=== PATIENT | female | born 1955 | race Caucasian/White ===

== ENCOUNTER → 2020-08-24 09:44 | Outpatient (CLI) | payer BC, SELFPAY ==
--- NOTE | ~2020-08-24 | US_ITS ---
EXAMINATION: US thyroid EXAM DATE: 08/24/2020 09:59 INDICATION: Disorder of thyroid, unspecified . TECHNIQUE: Multiple grayscale and Doppler images of the thyroid were obtained (by a technologist who performed the scan) and subsequently reviewed. Individual nodules and recommendations may be reporte d in accordance with TI-RADS system as designated by the 2017 ACR White Paper TI-RADS committee. The re is no prior study for comparison. FINDINGS: The right thyroid lobe measures 5.2 x 1.6 x 1.2 cm, left measuring 40.4 x 1.2 x 1.5 cm. There is mild ly heterogeneous thyroid echogenicity overall. There is a nodule in the inferior pole right thyroid lobe measuring 1.3 x 0.6 x 1.0 cm, solid (2 poin ts), hypoechoic (2 points), wider than tall, smooth margin, without echogenic foci, category TR4 for this nodule. IMPRESSION: Small right thyroid lobe nodule; consider one-year follow-up ultrasound. Reviewed, dictated and finalized at location A. NT RELATIONSHIP MANAGER IMPRESSION: Small right thyroid lobe nodule; consider one-year follow-up ultras ound.
== END ==
PROVIDERS: Visit Provider Nurse Practitioner
DX: E04.1 Nontoxic single thyroid nodule (principal)
CPT/HCPCS: 76536

== ENCOUNTER 2020-10-23 15:23 | Outpatient (CLI) | payer BC, SELFPAY ==
--- NOTE | ~2020-10-23 | MM_ITS ---
EXAMINATION: MM screening [facility] BI w pilar HISTORY: Screening mammogram TECHNIQUE: Craniocaudal and mediolateral oblique 3-D tomosynthesis images were obtained and synthetic 2-D images were generated. CAD analysis was submitted and interpreted. COMPARISON: 10/11/2019, 10/08/2018, 10/07/2017 BREAST PARENCHYMAL COMPOSITION: There are scattered areas of fibroglandular density. FINDINGS: There is no evidence of suspicious mass, calcification, or architectural distortion to sugg est malignancy in either breast. There has been no suspicious interval change. IMPRESSION: 1. No mammographic evidence of malignancy. 2. Recommend routine screening mammography in one year. BI-RADS Category 1: Negative Reviewed, dictated and finalized at location A. ENRICHMENT ASSISTANT
== END 2020-10-23 15:24 | disposition home or self-care (01) ==
PROVIDERS: PCP Nurse Practitioner; Visit Provider Nurse Practitioner
DX: Z12.31 Encounter for screening mammogram for malignant neoplasm of breast (principal)
CPT/HCPCS: 77063; 77067

== ENCOUNTER → 2021-08-25 09:41 | Outpatient (CLI) | payer BC, SELFPAY ==
--- NOTE | ~2021-08-25 | US_ITS ---
EXAMINATION: US thyroid DATE: 08/25/2021 10:02 INDICATION: Nontoxic single thyroid nodule. TECHNIQUE: Multiple ultrasound images of the thyroid were obtained. COMPARISON: Ultrasound 08/24/2020 FINDINGS: The right thyroid lobe measures 4.6 x 1.7 x 1.3 cm. The left thyroid lobe measures 4.5 x 1.6 x 1.5 c m. In the right thyroid lobe, there is a 1.3 cm predominantly solid, hypoechoic, [id number] nod ule with smooth margin without echogenic foci (TI-RADS TR4). IMPRESSION: 1. Stable thyroid nodule. Thyroid ultrasound is recommended in one year. Reviewed, dictated and finalized at location A. ORK OPERATIONS CENTER TECHNICIAN
== END ==
PROVIDERS: Visit Provider Nurse Practitioner
DX: E04.1 Nontoxic single thyroid nodule (principal)
CPT/HCPCS: 76536

== ENCOUNTER 2021-11-08 07:33 | Outpatient (CLI) | payer BC, SELFPAY ==
--- NOTE | ~2021-11-08 | MM_ITS ---
EXAMINATION: MM screening [facility] BI w pilar HISTORY: Screening TECHNIQUE: Craniocaudal and mediolateral oblique 3-D tomosynthesis images were obtained and synthetic 2-D images were generated. CAD analysis was submitted and interpreted. COMPARISON: Comparison to multiple prior studies sequentially, with oldest reviewed study dated 08/23. BREAST PARENCHYMAL COMPOSITION: There are scattered areas of fibroglandular density. FINDINGS: Benign-appearing bilateral breast masses are unchanged. There is no evidence of suspicious mass, calcification, or architectural distortion to suggest malignancy in either breast. There has be en no suspicious interval change. IMPRESSION: 1. No mammographic evidence of malignancy. 2. Recommend routine screening mammography in one year. BI-RADS Category 2: Benign finding(s). Reviewed, dictated and finalized at location A. ION ATTENDANT
== END 2021-11-08 07:34 | disposition home or self-care (01) ==
LOC: ANHIMG 07:37
PROVIDERS: Visit Provider Nurse Practitioner
DX: Z12.31 Encounter for screening mammogram for malignant neoplasm of breast (principal)
CPT/HCPCS: 77063; 77067

== ENCOUNTER → 2021-11-26 17:51 | Outpatient (CLI) | payer BC, SELFPAY ==
--- NOTE | ~2021-11-26 | DEXA_ITS ---
Bone Density Report Name: MARIBETH CRUZ Age: 66 Sex: Female Ethnicity: White Date of : 1955 Indication: osteopenia; parental hip fracture; prior fracture; postmenopausal Referring Provider: ANGEL, JACKIE Study: Bone densitometry was performed. Exam Date: November 26, 2021 Accession number: [id number] Bone Density: Region BMD T-score Z-score Classification AP Spine (L1-L4) 0.863 -1.7 0.1 Osteopenia Femoral Neck (Left) 0.587 -2.4 -0.9 Osteopenia Total Hip (Left) 0.782 -1.3 -0.1 Osteopenia Femoral Neck (Right) 0.618 -2.1 -0.6 Osteopenia Total Hip (Right) 0.820 -1.0 0.2 Normal Total Hip Mean 0.801 -1.2 0.1 Osteopenia World Health Organization criteria for BMD impression classify patients as: Normal (T-score at or above -1.0), Osteopenia (T-score between -1.0 and -2.5), or Osteoporosis (T-score at or below -2.5). 10-year Fracture Risk: FRAX not reported because: Prior hip or vertebral fracture Previous Exams: Region Exam Age BMD T-score BMD Change BMD Change Date g/cm2 vs Baseline vs Previous AP Spine(L1-L4) 11/26/2021 66 0.863 -1.7 -0.142* -0.061* 09/09/2015 59 0.924 -1.1 -0.081* -0.038* 08/20/2012 56 0.961 -0.8 -0.043* -0.043* 06/21/2009 53 1.004 -0.4 Total Hip(Left) 11/26/2021 66 0.782 -1.3 -0.096* -0.034* 09/09/2015 59 0.816 -1.0 -0.062* -0.027 08/20/2012 56 0.842 -0.8 -0.035* -0.035* 06/21/2009 53 0.878 -0.5 Total Hip(Right) 11/26/2021 66 0.820 -1.0 -0.029* -0.016 09/09/2015 59 0.836 -0.9 -0.013 -0.027 08/20/2012 56 0.863 -0.7 0.013 0.013 06/21/2009 53 0.849 -0.8 *Denotes significance at 95% confidence level, LSC for AP Spine = 0.022 g/cm2, LSC for Total Hip = 0.027 g/cm2 Clinical Information Provided by Patient: Have had a previous hip or vertebral fracture Has had a low trauma fracture Parent has had a hip fracture Has used the following medications: Vitamin D Patient maximum height was 65.5 Menopause Age: 51 Drinks caffeinated beverages Onset of menses at age 14 Number of children 2 Impression: The patient has low bone mass, based on the Left Femoral Neck T-score. The patient has risk factors, including: parental hip fracture, previous fracture. The BMD for the AP Spine(L1-L4) decreased, changing by -0.061 since the last DXA
== END ==
PROVIDERS: Visit Provider Nurse Practitioner
DX: M85.88 Other specified disorders of bone density and structure, other site (principal); M85.851 Other specified disorders of bone density and structure, right thigh; M85.852 Other specified disorders of bone density and structure, left thigh
CPT/HCPCS: 77080

== ENCOUNTER → 2022-09-10 08:55 | Outpatient (CLI) | payer BC, SELFPAY ==
--- NOTE | ~2022-09-10 | US_ITS ---
EXAMINATION: US thyroid DATE: 09/10/2022 09:09 INDICATION: Disorder of thyroid, unspecified. TECHNIQUE: Multiple ultrasound images of the thyroid were obtained. COMPARISON: Thyroid ultrasound 08/25/2021, 08/24/2020 FINDINGS: The right thyroid lobe measures 4.5 x 1.5 x 1.5 cm. The left thyroid lobe measures 4.8 x 1.4 x 1.3 c m. In the right thyroid lobe, there is a 9 mm solid, hypoechoic, wider than tall nodule with lobulat ed margin without echogenic foci (TI-RADS TR4). IMPRESSION: 1. Thyroid nodule, stable from 08/24/2020 and likely not clinically significant. No follow-up is neede d. Reviewed, dictated and finalized at location A. N RESOURCES OFFICE MANAGER IMPRESSION: 1. Thyroid nodule, stable from 08/24/2020 and likely not clinically significant. No follow-up is needed.
== END ==
PROVIDERS: PCP Nurse Practitioner; Visit Provider Nurse Practitioner
DX: E07.9 Disorder of thyroid, unspecified (principal); E04.1 Nontoxic single thyroid nodule
CPT/HCPCS: 76536

== ENCOUNTER 2022-12-03 16:21 | Outpatient (CLI) | payer BC, SELFPAY ==
--- NOTE | ~2022-12-03 | MM_ITS ---
EXAMINATION: MM screening [facility] BI w pilar HISTORY: Screening mammogram TECHNIQUE: Craniocaudal and mediolateral oblique 3-D tomosynthesis images were obtained and synthetic 2-D images were generated. CAD analysis was submitted and interpreted. COMPARISON: November 08, 2021, October 23, 2020, October 11, 2019 bilateral screening mammogram exam[place] BREAST PARENCHYMAL COMPOSITION: There are scattered areas of fibroglandular density. FINDINGS: Stable bilateral circumscribed low-density opacities consistent with intramammary lymph nod es. There is no evidence of suspicious mass, calcification, or architectural distortion to suggest ma lignancy in either breast. There has been no suspicious interval change. IMPRESSION: 1. No mammographic evidence of malignancy. 2. Recommend routine screening mammography in one year. BI-RADS Category 2: Benign finding(s). Reviewed, dictated and finalized at location A.
== END 2022-12-03 16:22 | disposition home or self-care (01) ==
LOC: ANHIMG 16:22
PROVIDERS: PCP Nurse Practitioner; Visit Provider Nurse Practitioner
DX: Z12.31 Encounter for screening mammogram for malignant neoplasm of breast (principal)
CPT/HCPCS: 77063; 77067

== ENCOUNTER 2023-12-08 11:46 | Outpatient (CLI) | payer MEDICARE, SELFPAY ==
--- NOTE | ~2023-12-08 | DEXA_ITS ---
Bone Density Report Name: MARIBETH CRUZ Age: 68 Sex: Female Ethnicity: White Date of : 1955 Indication: osteopenia; monitoring treatment; parental hip fracture; prior fracture; postmenopausal Referring Provider: ANGEL, JACKIE Study: Bone densitometry was performed. Exam Date: December 08, 2023 Accession number: [id number] Bone Density: Region BMD T-score Z-score Classification AP Spine (L1-L4) 0.917 -1.2 0.7 Osteopenia Femoral Neck (Left) 0.639 -1.9 -0.3 Osteopenia Total Hip (Left) 0.809 -1.1 0.2 Osteopenia Femoral Neck (Right) 0.712 -1.2 0.4 Osteopenia Total Hip (Right) 0.845 -0.8 0.5 Normal Total Hip Mean 0.827 -1.0 0.4 Normal World Health Organization criteria for BMD impression classify patients as: Normal (T-score at or above -1.0), Osteopenia (T-score between -1.0 and -2.5), or Osteoporosis (T-score at or below -2.5). 10-year Fracture Risk: FRAX not reported because: Treated for osteoporosis Previous Exams: Region Exam Age BMD T-score BMD Change BMD Change Date g/cm2 vs Baseline vs Previous AP Spine(L1-L4) 12/08/2023 68 0.917 -1.2 -0.087* 0.055* 11/26/2021 66 0.863 -1.7 -0.142* -0.061* 09/09/2015 59 0.924 -1.1 -0.081* -0.038* 08/20/2012 56 0.961 -0.8 -0.043* -0.043* 06/21/2009 53 1.004 -0.4 Total Hip(Left) 12/08/2023 68 0.809 -1.1 -0.069* 0.027 11/26/2021 66 0.782 -1.3 -0.096* -0.034* 09/09/2015 59 0.816 -1.0 -0.062* -0.027 08/20/2012 56 0.842 -0.8 -0.035* -0.035* 06/21/2009 53 0.878 -0.5 Total Hip(Right) 12/08/2023 68 0.845 -0.8 -0.004 0.025 11/26/2021 66 0.820 -1.0 -0.029* -0.016 09/09/2015 59 0.836 -0.9 -0.013 -0.027 08/20/2012 56 0.863 -0.7 0.013 0.013 06/21/2009 53 0.849 -0.8 *Denotes significance at 95% confidence level, LSC for AP Spine = 0.022 g/cm2, LSC for Total Hip = 0.027 g/cm2 Clinical Information Provided by Patient: Has had a low trauma fracture Parent has had a hip fracture Is being treated for osteoporosis Has used the following medications: Fosamax (i.e. alendronate), Vitamin D Patient maximum height was 65.5 Menopause Age: 51 No regular weight bearing exercise Drinks caffeinated beverages Onset of menses at age 14 Number of children 2
== END 2023-12-08 11:47 ==
PROVIDERS: PCP Nurse Practitioner; Visit Provider Nurse Practitioner
DX: M85.88 Other specified disorders of bone density and structure, other site (principal); M85.852 Other specified disorders of bone density and structure, left thigh; M85.851 Other specified disorders of bone density and structure, right thigh
CPT/HCPCS: 77080

== ENCOUNTER 2024-03-03 13:41 | Outpatient (CLI) | payer MEDICARE, SELFPAY ==
--- NOTE | ~2024-03-03 | MM_ITS ---
EXAMINATION: MM screening [facility] BI w pilar HISTORY: Screening TECHNIQUE: Craniocaudal and mediolateral oblique 3-D tomosynthesis images were obtained and synthetic 2-D images were generated. CAD analysis was submitted and interpreted. COMPARISON: Comparison to multiple prior studies sequentially, with oldest reviewed study dated 10/07. BREAST PARENCHYMAL COMPOSITION: Not dense: There are scattered areas of fibroglandular density. FINDINGS: There is no evidence of suspicious mass, calcification, or architectural distortion to sugg est malignancy in either breast. There has been no suspicious interval change. IMPRESSION: 1. No mammographic evidence of malignancy. 2. Recommend routine screening mammography in one year. BI-RADS Category 1: Negative Reviewed, dictated and finalized at location B.
== END 2024-03-03 13:42 | disposition home or self-care (01) ==
LOC: ANHIMG 13:42
PROVIDERS: PCP Registered Nurse; Visit Provider Nurse Practitioner
DX: Z12.31 Encounter for screening mammogram for malignant neoplasm of breast (principal)
CPT/HCPCS: 77063; 77067

== ENCOUNTER 2025-04-06 09:17 | Outpatient (CLI) | payer MEDICARE, SELFPAY ==
--- NOTE | ~2025-04-06 | MM_ITS ---
EXAMINATION: MM screening maritza BI w pilar HISTORY: Screening TECHNIQUE: Craniocaudal and mediolateral oblique 3-D tomosynthesis images were obtained and synthetic 2-D images were generated. CAD analysis was submitted and interpreted. COMPARISON: Comparison to multiple prior studies sequentially, with oldest reviewed study dated 10/08. BREAST PARENCHYMAL COMPOSITION: Not dense: There are scattered areas of fibroglandular density. FINDINGS: There are multiple bilateral intramammary lymph nodes which are not significantly changed f rom prior studies allowing for differences of technique. No new masses, calcifications or architectur al distortion are identified. There is no evidence of suspicious mass, calcification, or architectura l distortion to suggest malignancy in either breast. There has been no suspicious interval change. IMPRESSION: 1. No mammographic evidence of malignancy. 2. Recommend routine screening mammography in one year. BI-RADS Category 2: Benign finding(s). Reviewed, dictated and finalized at location B.
--- OUTSIDE RECORDS SUMMARY | 2025-04-06 09:24 | XMS_ITS | Clinical Summary ---
Author Organization [facility] [place] Address [address] [place] [address] Care Team Providers Care Decoration Checker Name Role Phone Ana Burden NP Primary Care Provider +1- [phone] Allergies No known active allergies Medications ergocalciferol (VITAMIN D) 50,000 unit capsule TAKE 1 CAPSULE BY MOUTH ONCE A WEEK 01/08/2021 Active Nascobal 500 mcg/spray spray,non-aeros ol USE 1 SPRAY INTO ONE NOSTRIL ONCE A WEEK FOR 4 WEEKS 10/18/2020 Active Active Problems Problem Noted Date Diagnosed Date Dry lips 01/16/2021 Glossitis 01/16/2021 Social History Tobacco Use Types Packs/Day Years Used Date Smoking Tobacco: Never Smokeless Tobacco: Never Personal Safety Answer Date Recorded Getting School Help Needed Not on file 11/22 Comments Unknown Sex and Gender Information Value Date Recorded Sex Assigned at Not on file Legal Sex Female 2:13 PM CDT Gender Identity Not on file Sexual Orientation Not on file Obstetrics History Last Filed Vital Signs Vital Sign Reading Time Taken Comments Blood Pressure - - Pulse - - Temperature 36.6 C (97.8 F) 01/16/2021 3:07 PM CDT Respiratory Rate - - Oxygen Saturation - - Inhaled Oxygen Concentration - - Weight 72.6 kg (160 lb) 01/16/2021 3:07 PM CDT Height 165.1 cm (5' 5) 01/16/2021 3:07 PM CDT Body Mass Index 26.63 01/16/2021 3:07 PM CDT Plan of Treatment Not on file Insurance ON LICENSE OF [facility] Care Teams Decoration Checker Relationship Specialty [place] [id number] [address] [facility] [address] [place] [address] PCP - General Family Practice 01/11/21
--- OUTSIDE RECORDS SUMMARY | 2025-04-06 09:24 | XMS_ITS | Referral Summary ---
Author Organization [facility] [place] Address [email or web address] [address] Care Team Providers Care Drier Operator Head Name Role Phone Ana Burden NP Primary Care Provider +1- [phone] Allergies No known active allergies Medications ergocalciferol [...] on file Sexual Orientation Not on file Last Filed Vital Signs Vital Sign Reading [...] Plan of Treatment Not on file Insurance [facility] Care Teams Drier Operator Head Relationship Specialty [place] [id number] [address] [facility] [address] [place] [address] PCP - General Family Practice 01/11/21
--- OUTSIDE RECORDS SUMMARY | 2025-04-06 09:24 | XMS_ITS | Encounter Summary ---
Author Organization [facility] Address [address] [place] [address] Care Team Providers Care Gymnasium Teacher Name Role Phone Ana Burden NP Primary Care Provider Unav ailable None, Provider Primary Care Provider Sanna Cunha APRN Primary Care Provider +1- [phone] Encounter Details Date Type Department Care Team (Late st Contact Info) Description 01/09/2021 mgMEDIA Message Enc [facility] Family & Internal Medicine [address] [address] Ana Burden NP RE: Test Results Social History Tobacco Use Types Packs/Day Years Used Date Smoking Tobacco: Never Smokeless Tobacco: Never Alcohol Use Standard Drinks/Week Comments Yes 0 (1 standard drink = 0.6 oz pur e alcohol) AUDIT-C Answer Date Recorded Q1: How often do you have a drink containing alc ohol? Monthly or less 01/04/2021 Q2: How many drinks containi ng alcohol do you have on a typical day when you are drinking? 1 or 2 01/04/2021 Q3: How often do you have si x or more drinks on one occasion? Never 01/04/2021 PHQ-2 Answer Date Recorded PHQ-2 Score - If the patient scores above 3, please move on to questions 3-9 0 01/04/2021 Comments No Sex and Gender Information Value Date Recorded Sex Assigned at Not on file Legal Sex Female 6:22 PM CDT Gender Identity Not on file Sexual Orientation Not on file COVID-19 Exposure Response Date Recorded In the last month, have you been in contact with someone who was confirmed or suspected to have Coronavirus / COVID-19? No / Unsure 01/04/2021 12:53 PM CDT documented as of this encounter Progress Notes * Iliana Horan RN - 01/09/2021 3:45 PM CDT Please advise on dx for referral. documented in this encounter Plan of Treatment Upcoming Encounters Date Type Department Care Team (Late st Contact Info) Description 06/06/2025 8:20 AM CDT Office Visit [facility] Family & Internal Medicine - [place] [address] [place] [address] Sanna Albert APRN [id number] [address] documented as of this encounter Visit Diagnoses Not on filedocumented in this encounter Additional Health Concerns Infection Onset Date Last Indicated Resolved Time COVID-19 Rule Out 10/11/2024 10/11/2024 10/11/2024 4:10 PM RIBBON WEAVER COVID-19 Confirmed 10/11/2024 10/11/2024 12:32 AM RIBBON WEAVER documented as of this encounter Care Teams Gymnasium Teacher Relationship Specialty Start Date End Date Ana Burden NP PCP - General NURSE PRACTITIONER 01/02/21 10/04/21 None, Provider, PCP - General UNKNOWN PHYSICIAN SPECIALTY 12/27/22 01/07/23 Sanna Albert APRN [id number] [facility] [address] [place] [address] PCP - General NURSE PRACTITIONER 01/08/23 documented as of this encounter
--- OUTSIDE RECORDS SUMMARY | 2025-04-06 09:25 | XMS_ITS | Clinical Summary ---
Author Organization [facility] Address [facility] [place] [address] Care Team Providers Care Commercial Attorney Name Role Phone Sanna Albert APRN Primary Care Provider [phone] Allergies No known active allergies Medications vitamin D2, ergocalciferol, 32206 UNITS capsule Take 1 capsule (50,000 Units total) by mouth as needed. Pt takes 2 times a month. 12/11/2020 Active Active Problems Problem Noted Date Diagnosed Date Osteopenia of multiple sites 02/27/2024 Glossitis 01/16/2021 Dry lips 01/16/2021 Resolved Problems Problem Noted Date Diagnosed Date Resolved Date Encounter for preventive health examination 04/29/2012 03/07/2025 Encounters Date Type Department Care Team Description 02/28/2025 10:00 AM CDT Office Visit [facility] Family & Internal Medicine [facility] [address] [place] [address] Sanna Albert APRN Follow Up (Annual) 02/28/2025 Travel 02/27/2025 Results Follow-Up [facility] [address] [place] [address] Sanna Albert APRN CBC W/DIFF AUTOMATED, VITAMIN B12 / FOLATE, VITAMIN D, 25 OH, Additional followed-up results: 3 02/23/2025 Patient Outreach [facility] Family [facility] Internal Medicine [facility] [address] [place] [address] Maritza Pino MA Pre-visit Gap Closure 02/22/2025 9:15 AM CDT - 02/22/2025 11:59 PM CDT Hospital Encounter [facility] [address] [place] [address] Sanna Albert, TOP FORMER Discharge Disposition: Home or Self Care (Routine Discharge) 02/22/2025 Orders Only [facility] [address] [place] [address] Sanna Albert, TOP FORMER 02/22/2025 Travel from Last 3 Months Immunizations Immunization Administration Dates Next Due FLUAD (IIV, Trivalent, 0.5 ML Pre-filled Syringe ) 07/19/2024 Fluzone High Dose - >Age 65 (Prefilled Syringe) 07/16/2022 Influenza Adult (Generic) 07/02/2016 PFIZER COVID-19 (ORIGINAL FO RMULATION, PURPLE CAP) mRNA, LNP-S, PF, 30 MCG/0.3 ML DOSE 01/16/2021,12/23/2020 Tdap (Generic) 12/18/2019 Family History Medical History Relation Comments No Known Problems Father Cancer Maternal Aunt breast cancer Diabetes Maternal Grandmother Alzheimers Mother Relation Status Comments Father Maternal Aunt Maternal Grandmother Alive Mother Social History Tobacco Use Types Packs/Day Years Used Date Smoking Tobacco: Never Smokeless Tobacco: Never Tobacco Cessation:Counseling Given: No Alcohol Use Standard Drinks/Week Comments Not Currently 0 (1 standard drink = 0.6 oz [...] occasion? Never 01/04/2021 PHQ-2 Answer Date Recorded Patient Health Questionnaire-2 Score 0 10/11/2024 Comments No Sex and Gender Information Value Date Recorded Sex Assigned at Not on file Legal Sex Female 6:22 PM CDT Gender Identity Not on file Sexual Orientation Not on file Last Filed Vital Signs Vital Sign Reading Time Taken Comments Blood Pressure 110/71 02/28/2025 9:59 AM CDT Pulse 71 02/28/2025 9:59 AM CDT Temperature 36.6 C (97.8 F) 02/28/2025 9:59 AM CDT Respiratory Rate 18 02/28/2025 9:59 AM CDT Oxygen Saturation 97% 02/28/2025 9:59 AM CDT Inhaled Oxygen Concentration - - Weight 75.3 kg (166 lb) 02/28/2025 9:59 AM CDT Height 165.1 cm (5' 5) 02/28/2025 9:59 AM CDT Body Mass Index 27.62 02/28/2025 9:59 AM CDT Plan of Treatment Upcoming Encounters Date Type Department Care Team (Late st Contact Info) Description 06/06/2025 8:20 AM CDT Office Visit [facility] Family & Internal Medicine - [place] [id number] [place] [phone] Sanna Albert, TOP FORMER [address] [facility] [address] [place] [address] Health Maintenance Due Date Last Done Comments Annual Medicare Wellness Visit 2021 Mammogram Screening 05/02/2025 03/03/2024, 08/17/2012, 08/13/2011 Postponed from 03/03/2025 (Future Appointment) Dexa Scan (General) 12/07/2025 12/08/2023 COVID-19 Vaccine (3 - 2023-2 5 season) 2026 01/16/2021, 12/23/2020 Postponed from 05/23/2024 (Patient Refused) Colorectal Cancer Screening Colonoscopy (10 Years) 02/28/2026 Postponed from (Patient Refused) Pneumococcal Vaccine: 50+ Years (1 of 1 - PCV) 02/28/2026 Postponed from 09/23 (Patient Refused) Zoster Vaccines (1 of 2) 02/28/2026 Pos tponed from 2006 (Going to Outside Clinic) DTaP, Tdap and Td Vaccines ( 2 - Td or Tdap) 12/17/2029 12/18/2019 RSV Immunization or 60+ Years (1 - 1-dose 75+ series) 2031 Hepatitis C 01/17/2053 Postponed from 1974 (Patient Refused) PHQ-2 (Physician [place]) Completed 10/11/2024 Meningococcal B Vaccine Aged Out No l onger eligible based on patient's age to complete this topic Meningococcal Vaccine Aged Out No joyce partha eligible based on patient's age to complete this topic RSV Immunizations Under 20 Months Aged Out No longer eligible b ased on patient's age to complete this topic Procedures Procedure Name Priority Date/Time Associated Diagnosis Comments LIPID PANEL Routine 02/22/2025 9:34 AM CDT Annual physical exam Impaired fasting glucose B12 deficiency Vitamin D deficiency Screening for thyroid disorder COMPREHENSIVE METABOLIC PANEL Routine 02/22/2025 9:34 AM CDT Annual physical exam Impaired fasting glucose B12 deficiency Vitamin D deficiency Screening for thyroid disorder TSH W/REFLEX Routine 02/22/2025 9:34 AM CDT Annual physical exam Impaired fasting glucose B12 deficiency Vitamin D deficiency Screening for thyroid disorder VITAMIN D, 25 OH Routine 02/22/2025 9:34 AM CDT Annual physical exam Impaired fasting glucose B12 deficiency Vitamin D deficiency Screening for thyroid disorder VITAMIN B12 / FOLATE Routine 02/22/2025 9:34 AM CDT Annual physical exam Impaired fasting glucose B12 deficiency Vitamin D deficiency Screening for thyroid disorder CBC W/DIFF AUTOMATED Routine 02/22/2025 9:34 AM CDT Annual physical exam Impaired fasting glucose B12 deficiency Vitamin D deficiency Screening for thyroid disorder MAMMOGRAM GENERIC (SCAN ORDER) 03/03/2024 BONE DENSITY GENERIC (SCAN ORDER) 12/08/2023 from Last 3 Months or Most Recently Relevant to Health Maintenance Results * VITAMIN B12 / FOLATE (02/22/2025 9:34 AM CDT) VITAMIN B12 S/P/B 240 193 - 986 PG/ML 02/23/2025 6:10 PM CDT [facility] FOLATE 15.4 8.6 - 58.9 NG/ML 02/23/2025 7:22 AM CDT [facility] 02/22/2025 9:34 AM CDT Sanna Deras Bety [facility] Final Resu lt Performing Organization Address City/[facility]/ZIP Co de Phone Number [facility] [address] [place] [address], [place] [phone] * TSH W/REFLEX (02/22/2025 9:34 AM CDT) TSH 1.447 0.358 - 3.74 uIU/ML 02/22/2025 10:07 AM CDT [facility] Comment: HIGH DOSES OF BIOTIN MAY INTERFERE WITH THIS TEST RESULT. CORRELATION TO CLINICAL HISTORY AND PRESENTATION RECOMMENDED. FREE T4 NOT INDICATED 02/22/2025 9:34 AM CDT Sanna Albert APRN LABORATORY Final Resu lt Performing Organization Address [facility]/ZIP Co de Phone Number [facility] [address] [place] [address], [place] [phone] * (ABNORMAL) COMPREHENSIVE METABOLIC PANEL (02/22/2025 9:34 AM CDT) GLUCOSE 110(H) 70 - 99 MG/DL 02/22/2025 10:07 AM CDT [facility] BUN 16 7 - 18 MG/DL 02/22/2025 10:07 AM CDT [facility] CREATININE S/P/B 0.71 0.55 - 1.02 MG/DL 02/22/2025 10:07 AM CDT [facility] SODIUM S/P/B 142 136 - 145 MMOL/L 02/22/2025 10:07 AM CDT [facility] POTASSIUM S/P/B 4.1 3.5 - 5.1 MMOL/L 02/22/2025 10:07 AM [facility] CHLORIDE S/P/B 106 100 - 108 MMOL/L 02/22/2025 10:07 AM [facility] CO2 29.9 21 - 32 MMOL/L 02/22/2025 10:07 AM [facility] CALCIUM S/P/B 9.0 8.5 - 10.1 MG/DL 02/22/2025 10:07 AM [facility] BILIRUBIN TOTAL S/P/B 0.5 0.2 - 1.2 MG/DL 02/22/2025 10:07 AM [facility] TOTAL PROTEIN S/P/B 7.4 6.4 - 8.2 G/DL 02/22/2025 10:07 AM [facility] ALBUMIN S/P/B 3.6 3.4 - 5.0 G/DL 02/22/2025 10:07 AM [facility] AST 13(L) 15 - 37 U/L 02/22/2025 10:07 AM [facility] ALT 16 14 - 55 U/L 02/22/2025 10:07 AM [facility] ALKALINE PHOSPHATASE S/P/B 78 50 - 136 U/L 02/22/2025 10:07 AM [facility] ANION GAP 6.1 5 - 15 MMOL/L 02/22/2025 10:07 AM [facility] BUN CREATININE RATIO 22.5 6 - 26 02/22/2025 10:07 AM [facility] A/G RATIO 0.9(L) 1.0 - 2.0 RATIO 02/22/2025 10:07 AM CDT [facility] GFR ESTIMATE >90 >90 ML/MIN/1.7 3 M2 02/22/2025 10:07 AM T [facility] Comment: NOTE: eGFR is not calculated for patients <18 years of age. This is an estimated GFR calculation using the new CKD EPI creatinine equation without race and so does not require a correction factor for race. This estimated GFR should not be used for calculating drug doses. 02/22/2025 9:34 AM CDT us Sanna Albert APRN LABORATORY Final Resu lt [facility] [address] [place] [address], [place] [phone] * (ABNORMAL) LIPID PANEL (02/22/2025 9:34 AM CDT) CHOLESTEROL 194 <200.0 MG/DL 02/22/2025 10:07 AM [facility] TRIGLYCERIDES 71 <150 MG/DL 02/22/2025 10:07 AM [facility] HDL 42 >40.0 MG/DL 02/22/2025 10:07 AM [facility] LDL (CALCULATED) 138(H) <100 MG/DL 02/22/2025 10:07 AM [facility] NON HDL CHOLESTEROL 152(H) <130 MG/DL 02/22/2025 10:07 AM [facility] CHOL/HDL RATIO 4.6(H) 0.0 - 4.5 02/22/2025 10:07 AM [facility] VLDL CALCULATION 14 5 - 55 MG/DL 02/22/2025 10:07 AM [facility] LIPID INTERPRETATION 02/22/2025 10:07 AM [facility] Comment: [facility] REPORT RECOMMENDATIONS: ADULT CHILD LOW RISK: CHOLESTEROL <200 <170 TRIGLYCERIDE <150 --- HDL >=60 --- LDL <100 <110 BORDERLINE: CHOLESTEROL 200-239 170-199 TRIGLYCERIDE 150-199 --- HDL 40-59 --- LDL 100-159 110-129 HIGH RISK: CHOLESTEROL >=240 >=200 TRIGLYCERIDE >=200 --- HDL <40 --- LDL >=160 >=130 02/22/2025 9:34 AM CDT us Sanna Albert TOP FORMER LABORATORY Final Resu lt [facility] [address] [place] [id number], * (ABNORMAL) CBC W/DIFF AUTOMATED (02/22/2025 9:34 AM CDT) WBC 5.78 4.4 - 11.0 x10'3/uL 02/22/2025 9:45 AM CDT [facility] RBC 4.83 4.50 - 5.10 x10'6/uL 02/22/2025 9:45 AM CDT [facility] HGB 14.5 12.3 - 15.3 G/DL 02/22/2025 9:45 AM CDT [facility] HCT 44.7(H) 35.9 - 44.6 % 02/22/2025 9:45 AM CDT [facility] MCV 92.5 80.0 - 96.0 FL 02/22/2025 9:45 AM CDT [facility] MCH 30.0 25.3 - 30.9 PG 02/22/2025 9:45 AM CDT [facility] MCHC 32.4 31.0 - 34.1 G/DL 02/22/2025 9:45 AM CDT [facility] RDW 12.9 12.4 - 15.1 % 02/22/2025 9:45 AM CDT [facility] PLT 261 151 - 353 x10'3/uL 02/22/2025 9:45 AM T [facility] MPV 10.2 9.6 - 12.0 FL 02/22/2025 9:45 AM CDT [facility] RBC MORPHOLOGY NORMAL 02/22/2025 9:45 AM T [facility] PLT MORPH. NORMAL 02/22/2025 9:45 AM T [facility] WBC MORPHOLOGY NORMAL 02/22/2025 9:45 AM T [facility] LYMPHOCYTES % 27.7 15.8 - 45.0 % 02/22/2025 9:45 AM T [facility] NEUTROPHILS % 58.4 42.1 - 71.9 % 02/22/2025 9:45 AM T [facility] MONOCYTES % 8.5 5.7 - 12.5 % 02/22/2025 9:45 AM [facility] EOSINOPHILS 4.2 0.0 - 5.6 % 02/22/2025 9:45 AM T [facility] BASOPHILS 1.0 0.0 - 1.3 % 02/22/2025 9:45 AM T [facility] ABS. NEUTROPHILS 3.38 1.40 - 6.00 x10'3/uL 02/22/2025 9:45 AM T [facility] IMMATURE GRANS % 0.2 0.0 - 0.5 % 02/22/2025 9:45 AM [facility] ABS. LYMPHOCYTES 1.60 0.80 - 4.70 x10'3/uL 02/22/2025 9:45 AM T [facility] 02/22/2025 9:34 AM CDT Sanna Breauxendez TOP FORMER LABORATORY Final Resu lt Performing Organization Address City/[facility]/ZIP Co de Phone Number [facility] [address] [place] [address], [place] [phone] * VITAMIN D, 25 OH (02/22/2025 9:34 AM CDT) VITAMIN D 25 HYDROXY S/P/B 34 30 - 100 NG/ML 02/22/2025 10:51 AM CDT [facility] Comment: INTERPRETATION DEFICIENT <20 INSUFFICIENT 20-29 SUFFICIENT 30-100 02/22/2025 9:34 AM CDT Sanna Breauxendez TOP FORMER LABORATORY Final Resu lt Performing Organization Address [facility]/ZIP Co de Phone Number [facility] [address] [place] [address], [place] [phone] * MAMMOGRAM GENERIC (SCAN ORDER) (03/03/2024) Anatomical Region Laterality Modality Other 03/03/2024 [facility] Scanned SCANNING Final Resu lt * BONE DENSITY GENERIC (SCAN ORDER) (12/08/2023) Anatomical Region Laterality Modality Other 12/08/2023 [facility] Scanned SCANNING Final Resu lt from Last 3 Months or Most Recently Relevant to Health Maintenance Insurance [facility] Care Teams Commercial Attorney Relationship Specialty Start Date End Date Sanna Albert APRN [id number] [address] PCP - General NURSE PRACTITIONER 01/08/23
== END 2025-04-06 09:18 | disposition home or self-care (01) ==
LOC: ANHIMG 09:20
PROVIDERS: PCP Registered Nurse; Visit Provider Nurse Practitioner
DX: Z12.31 Encounter for screening mammogram for malignant neoplasm of breast (principal)
CPT/HCPCS: 77063; 77067